=== PATIENT | female | born 1955 | race Caucasian/White ===

== ENCOUNTER 2017-01-19 10:44 | Inpatient (IN) | payer OTHER, SELFPAY ==
--- NOTE | ~2017-01-19 | DS ---
Unit #: [id number] #: [id number] Patient: TAPAN DINH [id number] [address] [address] [id number] I MR#: [id number] NAME: TAPAN DINH ROOM: 559 Age: 61 Sex: F Admission Date: 01/19/2017 : 1955 Discharge Date: 01/23/2017 Attending Physician: Alejandro Mcfadden M.D. Referring Physician: Arlet Fabian M.D. Primary Care Physician: Arlet Fabian M.D. DISCHARGE SUMMARY DISCHARGE DIAGNOSES 1. Iwxvg-nw-pnmamkn systolic congestive heart failure, left ventricular ejection fraction has decreased down to 30% from 50% to 55%. 2. 2D echo on 01/20/2017 shows LVEF reduced to 30%. Mild LVH, severe hypokinesis, mild enlargement of the right atrium, mildly dilated left atrium, and moderately dilated right ventricle with elevated RVSP 50 mmHg consistent with moderate pulmonary hypertension and moderate mitral annular calcification, and moderate mitral regurgitation and moderate tricuspid regurgitation. 3. Atrial flutter, questionable onset. 4. Cardiac catheterization done by Dr. Mcfadden on 01/22/2013 showed normal coronaries. No LV-gram. 5. Jdkaz-nh-ltuoeqp kidney disease. 6. Hypertension. 7. Hyperlipidemia. 8. Anxiety. DISCHARGE MEDICATIONS 1. Acetaminophen 650 mg p.o. q.8 h. 2. Coumadin 5 mg p.o. today. 3. Coumadin 2.5 mg p.o. daily. 4. Doxepin [address]s. [address] Dr[address] Byrne. 5. Stop the trazodone. 6. Vistaril 25 mg p.o. b.i.d. per Dr. Byrne. 7. Carvedilol 25 mg p.o. b.i.d. 8. Lasix 20 mg p.o. b.i.d. 9. Pravastatin 40 mg p.o. h.s. 10. Hydralazine 50 mg p.o. b.i.d. 11. Zyloprim 100 mg p.o. daily. 12. Aspirin 81 mg p.o. daily. 13. Tramadol 50 mg p.o. q.6 h. p.r.n. as needed. 14. Potassium chloride 20 mEq p.o. b.i.d. 15. Flexeril 10 mg p.o. t.i.d. as needed for muscle spasms. 16. Levothyroxine 100 mcg p.o. daily. 17. Vitamin B12 1000 mcg p.o. daily. 18. Vitamin D3 one tablet p.o. daily. 19. Losartan 50 mg p.o. daily. HOSPITAL COURSE This is a 61-year-old white female with history of having atrial fibrillation and atrial flutter and underwent DC cardioversion in 2014 to get in sinus rhythm. She remains on chronic anticoagulation with Coumadin. The patient has had a cath back in 2011 which showed 90% stenosis in a septal is architect, mid LAD was 50% and left circumflex had a Unit #: [id number] #: [id number] Patient: TAPAN DINH 30% stenosis. Ejection fraction at that time was 20% to 25% with mxvz-dy-npbmjtxv mitral regurgitation. Patient had an echo later about a year later and her LVEF increased to 50% to 55%. The patient has not been following up regularly with Dr. Mcfadden. She does see Dr. Fabian. The patient presented to the emergency room because she was feeling a lot of heart racing and palpitations. She says it has been happening over the past couple of days. The patient did complain of some pain in the left anterior chest wall. She said it was like a dull pushing ache. There is no radiation to the neck or jaws. She had some diaphoresis but no nausea or vomiting. She has been slightly short of breath since the heart racing and fluttering but denies paroxysmal nocturnal dyspnea or orthopnea. She also says that she has been having a lot of issues with her anxiety and states that she has frequent anxiety attacks. She has been compliant with her CPAP at night, she has obstructive sleep apnea. In the emergency room, patient's blood pressure was found to be elevated at 191/106 and her heart rate was in the 80s. BUN 17, creatinine 1.5. Her BNP was mildly elevated at 476. D-dimer was normal at 347. INR was subtherapeutic at 1.3. Chest x-ray showed some vascular congestion. Her EKG revealed atrial flutter with a controlled ventricular rate in the 70s. She was started on some IV Lasix. She was on Lovenox until her INR became therapeutic. The patient was having renal insufficiency and needed to diuresis and possibly do a heart catheterization. Nephrology was consulted. Dr. Salas assisted with management. Patient did have a stress test and it was abnormal and showed anterior wall ischemia with LVEF of 30%. With patient's multiple risk factors and having a cath in 2011 with some blockages, it was felt she needed a repeat heart catheterization. Dr. Salas did premedicate the patient with Mucomyst and she was started on IV fluids half normal saline. Her Lasix was stopped after diuresing and she was started on IV dobutamine. She responded well to the therapy. She remains in atrial flutter with controlled ventricular rate. Dr. Mcfadden performed a cardiac catheterization on 01/22/2017 which revealed nonobstructive CAD but she still continued to have the 90% stenosis in the septal is architect. The patient's losartan had to be stopped initially because of her renal insufficiency but at discharge she is going to return home on losartan 50 mg p.o. daily but increase the dose of hydralazine for better blood pressure management. Dr. Salas is resuming her Lasix b.i.d. The patient will have a BMP and those results will be called to Dr. Salas's office and our office. On , also patient was started back on her Coumadin. Patient received a 5 mg dose today and was started on 2.5 mg and have a pro time and INR in our office next week. The patient will be discharged home in stable condition. No complaints of chest pain, palpitations or dizziness. Her ventricular rate is better controlled and she says she is overall feeling better. The patient's vital signs are stable. Most recent laboratory diagnostic data includes glucose 92, BUN 19, creatinine 1.7, EGFR is 31.6, sodium 133, potassium 3.8, chloride 104, CO2 is 23, calcium 10.2, magnesium 2.2, total protein 7.2, albumin 4.0, AST 21, ALT 18, alkaline phosphatase 80. BNP 109. Fasting lipid profile cholesterol 139, triglycerides 101, LDL 78, HDL 41. TSH 3.68. WBC 8.0, hemoglobin 13.6, hematocrit 42.9, platelets 186. EKG today shows atrial flutter with controlled ventricular rate of 76 beats per minute. PHYSICAL EXAMINATION AT DISCHARGE Unit #: [id number] #: [id number] Patient: TAPAN DINH VITAL SIGNS: Blood pressure 146/65, heart rate 84, respirations 18, temperature afebrile. HEART: S1, S2. Irregular rate and rhythm. LUNGS: Diminished, otherwise, clear. ABDOMEN: Soft, nontender. EXTREMITIES: Pedal pulses are palpable, no pedal edema. PLAN/INSTRUCTIONS The patient will be discharged home today, instructed to follow up with Dr. Mcfadden in 4 weeks. Appointment is for 02/20/2017 at 3 p.m. At that time, if the patient is still in atrial flutter/atrial fibrillation will arrange for DC cardioversion. The patient has been started back on her ARB for cardiomyopathy. The patient is on anticoagulation, given an extra dose of Coumadin today, then resume her previous home dose starting tomorrow and have a pro time INR in our office next Thursday. The patient will follow with Dr. Salas in his office on 03/17/2017 at 4:30 p.m. The patient will follow up with her primary care doctor on her anti-anxiety medications that Dr. Byrne prescribed. Provided reinforcement education for CHF. Patient will follow up with her PCP in 1 to 2 weeks. Patient will have a BMP on 02/05/2017 and those results will be sent to Dr. Mcfadden's office. The patient is to stop her hydrochlorothiazide but continue on her Lasix and her hydralazine has been increased. As mentioned, the patient is on an ARB, losartan 50 mg one tablet daily for cardiomyopathy. Dictated by... Dona Solis A.P.R.NAntony for Alejandro Mcfadden M.D. JAVIER/jt TD: 01/23/2017 21:23 JOB #: [id number] Unit #: [id number] #: [id number] Patient: TAPAN DINH DISCHARGE SUMMARY Page 1 of 1 X Dona Solis APRN X DISCHARGE SUMMARY
--- NOTE | ~2017-01-19 | CO ---
Unit #: [id number] #: [id number] Patient: TAPAN DINH [id number] [id number] [facility]. [place], [place] [address] [id number] I MR#: [id number] NAME: TAPAN DINH ROOM: 559 Age: 61 Sex: F Admission Date: 01/19/2017 : 1955 Attending Physician: Alejandro Mcfadden M.D. Primary Care Physician: Arlet Fabian M.D. Consultation Date: 01/19/2017 CONSULTATION REPORT REASON FOR CONSULTATION Depression and anxiety. HISTORY OF PRESENT ILLNESS Ms. Hunter is a 61-year-old white female, seen on 01/19/2017 in room 559 at [facility]. The patient was admitted on 01/19/2017 with chest pain. The patient reported that she has anxiety and discomfort. The patient was pleasant and cooperative during interview, moderately obese, dressed in hospital attire. The patient reported that she has been having anxiety attack and panic attack, mostly in the last 2 weeks. The patient reported taking medication for sleep and anxiety from the last year from primary care physician, currently on trazodone 100 mg at bedtime. The patient reported that recently they started Xanax 0.25 mg q.8 hours which helped. The patient currently denied any suicidal or homicidal ideation. Denied any psychotic symptom. The patient reported feeling tired in the morning, reports takes trazodone and at times Ambien. The patient denied any use of drugs or alcohol or any marijuana. PAST PSYCHIATRIC HISTORY Remarkable for history of depression and anxiety, received treatment from her primary care physician. MEDICAL HISTORY Remarkable for history of hypertension, history of angina, nonischemic cardiomyopathy, chronic kidney disease, history of rheumatic fever, hypertension, and hyperlipidemia. MEDICATIONS The patient is on Desyrel 100 mg at bedtime, Lipitor 10 mg daily, hydralazine 50 mg b.i.d., Coreg 25 mg b.i.d., Klor-Con, Xanax, furosemide, Flexeril, Ultram, and aspirin. Please refer to MAR for detail. FAMILY HISTORY AND SOCIAL HISTORY The patient lives by herself, has a good support system from her children. The patient denied any use of drugs or alcohol. No history of any abuse. REVIEW OF SYSTEMS Complete review of systems is unremarkable except as mentioned above. MENTAL STATUS EXAMINATION General appearance; the patient moderately obese, dressed casually. Attention span and concentration, fair. Speech, regular rate and coherent. Oriented in time, place, and person. Mood and affect were sad, dysphoric, anxious. Thought process, coherent and goal directed. Thought Unit #: [id number] #: [id number] Patient: TAPAN DINH content, the patient denied any thoughts of harming self or others or any psychotic symptom. Recent and remote memory, fair. Language, able to name object, repeat phrases. Fund of knowledge, fair. Insight and judgment, fair to slightly impaired. DIAGNOSES Psychiatric: 1. Mood disorder, not otherwise specified, F32.9. 2. Anxiety disorder, not otherwise specified, F40.01. Secondary diagnosis: Deferred. Medical diagnosis: Please refer to H and P. Stressors: Psychosocial stressor. ASSESSMENT/PLAN 1. Supportive psychotherapy and psychoeducation provided to the patient. 2. Educated about benefits and side effects of medication and course and prognosis of illness. 3. Advised to start the patient on doxepin 50 mg at bedtime. Discontinue trazodone as the medication is not helping, and advised Vistaril 25 mg b.i.d. for anxiety and continue with p.r.n. Xanax. We will continue to follow. Please feel free to call if any questions, telephone #[phone]. Dictated by... Sarina Casarez/spring TD: 01/21/2017 03:35 JOB #: [id number] CONSULTATION REPORT Page 1 of 1 X Glenn Byrne MD X CONSULTATION REPORT
--- NOTE | ~2017-01-19 | EKG ---
PATIENT: TAPAN DINH UNIT #: [id number] Ventricular Rate: 79 BPM Atrial Rate: 79 BPM P-R Interval: 250 ms QRS Duration: 170 ms Q-T Interval: 480 ms QTC Calculation(Bezet): 550 ms P [place]: 89 degrees Calculated R [place]: 180 degrees Calculated T [place]: 43 degrees Diagnosis Line: Atrial flutter Diagnosis Line: Indeterminate axis Diagnosis Line: Non-specific intra-ventricular conduction block Diagnosis Line: Abnormal ECG Diagnosis Line: When compared with ECG of 20-JAN-2017 07:38, Diagnosis Line: No significant change was found Diagnosis Line: Confirmed by BLAS LINARES MD ([id number]) on 01/27/2017 Diagnosis Line: 10:21:16 PM INTERPRETING MD: MILAGROS CLEMONS
--- NOTE | ~2017-01-19 | CO ---
Unit #: [id number] #: [id number] Patient: TAPAN DINH [id number] [facility] [address] [facility]. [place], [place] [address] [id number] I MR#: [id number] NAME: TAPAN DINH ROOM: 559 Age: 61 Sex: F Admission Date: 01/19/2017 : 1955 Attending Physician: Alejandro Mcfadden M.D. Primary Care Physician: Arlet Fabian M.D. Consultation Date: 01/22/2017 CONSULTATION REPORT REASON FOR CONSULTATION Followup. DISCUSSION Miss Hunter is a 61-year-old female seen in room 559, bed 1, on January 22, 2017, at [facility]. Patient reported that she had a cardiac cath yesterday and everything was fine. Patient reported that she is feeling happy that there was no blockage. Patient reports that she is still having trouble sleeping and anxiety, but the medication is helping her. Patient is currently on Vistaril and doxepin. Denied any thoughts of harming self or others or any psychotic symptoms. REVIEW OF SYSTEMS Complete review of systems is unremarkable. MENTAL STATUS EXAMINATION General appearance: Patient is dressed casually, moderately obese. Attention span and concentration are fair. Speech is regular rate and coherent. Oriented in time, place, and person. Mood and affect are labile. Thought process coherent. Thought content: Patient denied any thoughts of harming self or others. Recent and remote memory fair. Language: Able to name object and repeat phrases. Fund of knowledge fair. Insight and judgment fair to slightly impaired. DIAGNOSES PSYCHIATRIC: Mood disorder not otherwise specified F32.9; anxiety disorder not otherwise specified F40.01. ASSESSMENT AND PLAN 1. Supportive psychotherapy and psychoeducation provided to patient. 2. Educated about benefits and side effects of medication and course and prognosis of illness. 3. Continue with current medication. If needed, consider further adjustment of medication. 4. Please feel free to call with any questions at [phone]. Dictated by... Sarina Casarez/miguelina TD: 01/25/2017 16:15 JOB #: [id number] Unit #: [id number] #: [id number] Patient: TAPAN DINH CONSULTATION REPORT Page 1 of 1 X Glenn Byrne MD CONSULTATION REPORT
--- NOTE | ~2017-01-19 | EKG ---
PATIENT: TAPAN DINH UNIT #: [id number] Ventricular Rate: 79 BPM Atrial Rate: 79 BPM P-R Interval: 260 ms QRS Duration: 176 ms Q-T Interval: 498 ms QTC Calculation(Bezet): 571 ms P [place]: 80 degrees Calculated R [place]: 128 degrees Calculated T [place]: 24 degrees Diagnosis Line: Atrial flutter Diagnosis Line: Non-specific intra-ventricular conduction block Diagnosis Line: Abnormal ECG Diagnosis Line: Diagnosis Line: Confirmed by BLAS LINARES MD ([id number]) on 01/20/2017 Diagnosis Line: 10:27:07 PM INTERPRETING MD: MILAGROS CLEMONS
--- NOTE | ~2017-01-19 | TH ---
Unit #: [id number] #: [id number] Patient: TAPAN DINH [id number] [address] [address] [id number] I MR#: [id number] NAME: TAPAN DINH : 1955 SEX: F STUDY DATE/TIME: 01/20/2017 UNIT: C5B ROOM: 559 STUDY DESCRIPTION: Attending Physician: Alejandro Mcfadden M.D. Referring Physician: Arelt Fabian M.D. Primary Care Physician: Arlet Fabian M.D. CARDIOLOGY REPORT EXAM Lexiscan Cardiolite stress test, nuclear portion. PROCEDURE Using technetium 99m labeled Cardiolite, rest and stress SPECT images were obtained. Multiple SPECT images were obtained in various views including horizontal and vertical long axis and short axis views of the left ventricle. Images were obtained by gated SPECT method. Patient was administered 11.77 mCi of Cardiolite at rest. Patient was administered 34.7 mCi of Cardiolite after Lexiscan infusion was completed. On the stress images, there is a medium-sized area of severe decreased isotope activity involving the anterior wall. The rest images show a smaller area of mild decreased isotope activity anteriorly. Comparing rest and stress images, there is a medium-sized area of stress-induced ischemia involving the anterior wall of the left ventricle. The left ventricular ejection fraction is calculated to be 60%. There is global hypokinesis seen. The left ventricular cavity is moderately dilated post stress. CONCLUSION 1. Suspicion for medium-sized area of stress-induced ischemia involving the anterior wall of the left ventricle. 2. The left ventricular ejection fraction is calculated to be 30%. 3. There is moderate left ventricular cavity dilatation post stress. 4. There is moderate global hypokinesis seen. 5. Suspicion for severe ischemic dilated cardiomyopathy. 6. Technically limited study due to patient's body habitus. Clinical correlation is requested. 1. Dictated bySarina Roblero TD: 01/20/2017 14:45 JOB #: [id number] Unit #: [id number] #: [id number] Patient: TAPAN DINH S CARDIOLOGY REPORT Page 1 of 1 X Juliet Darden MD <ELECTRONICALLY SIGNED> 05/16/17 1429 CARDIOLOGY REPORT
--- NOTE | ~2017-01-19 | CR72 ---
[facility] A Service of [facility] RADIOLOGY TEXT RESULTS PATIENT: TAPAN DINH LOCATION: [place] [address] : [birth year] UNIT #: [id number] AGE: [address]: Alejandro Mcfadden MD SEX: F ORDER DR: [id number] [facility] [address] [place], [place] [address] [id number] I MR#: [id number] Acc #: [id number] NAME: TAPAN DINH : 1955 SEX: F STUDY DATE/TIME: 01/19/2017 9:39 UNIT: CEDOF ROOM: 10634 STUDY DESCRIPTION: CR Chest Single View Portable Attending Physician: Alejandro Mcfadden M.D. Referring Physician: Arlet Fabian M.D. Ordering Physician: Khoa Ariza M.D. Primary Care Physician: Arlet Fabian M.D. MEDICAL IMAGING REPORT This report is preliminary unless electronic signature is present EXAM Portable chest 01/19/2017 INDICATION Left side chest pain, abdominal pain for 1 day. FINDINGS AP portable chest is compared with 10/05/2015. The heart is enlarged. There is some central vascular congestion. The lungs are clear allowing for body habitus and portable technique. No pneumothorax. IMPRESSION Cardiomegaly with some mild vascular congestion. Dictated by... Dylan Hammond Jr., M.D. THIS IS AN ELECTRONICALLY VERIFIED REPORT Dylan Hammond Jr., M.D. at 01/19/2017 4:48 PM JAXON/yo TD: 01/19/2017 12:41 JOB #: [id number] MEDICAL IMAGING REPORT Page 1 of 1 COPY
--- NOTE | ~2017-01-19 | ST ---
Unit #: [id number] #: [id number] Patient: TAPAN DINH [id number] [address] [place], [place] [address] [id number] I MR#: [id number] NAME: TAPAN DINH. : 1955 SEX: F STUDY DATE/TIME: 01/20/2017 UNIT: C5B ROOM: 559 STUDY DESCRIPTION: Attending Physician: Alejandro Mcfadden M.D. Referring Physician: Arlet Fabian M.D. Primary Care Physician: Arlet Fabian M.D. CARDIOLOGY REPORT EXAM Lexiscan Cardiolite stress test. FINDINGS Baseline EKG: Atrial flutter with variable degrees of conduction with ventricular rate 81 beats per minute, left bundle branch block, poor R-wave progression. PROCEDURE Lexiscan is a 4-minute test with Lexiscan being injected within the first minute followed by Cardiolite. EKG during the test was equivocal to baseline. No acute ischemic changes. The patient had no complaints of chest pain, palpitations, or dizziness. Had increased shortness of breath and weakness which resolved in recovery phase. Maximum heart rate response was 83 beats per minute with a maximum blood pressure response of 162/80 mmHg. Cardiolite was injected after Lexiscan within the first minute of the test. Radionuclide tests pending. Please correlate with nuclear images. Dictated by... Dona Solis A.P.R.N. for Sarina Yeboah TD: 01/20/2017 10:57 JOB #: [id number] CARDIOLOGY REPORT Page 1 of 1 X Dona Solis APRN CARDIOLOGY REPORT
--- NOTE | ~2017-01-19 | CO ---
Unit #: [id number] #: [id number] Patient: TAPAN DINH [id number] [facility] [address] [facility]. [place], [place] [address] [id number] I MR#: [id number] NAME: TAPAN DINH ROOM: 559 Age: 61 Sex: F Admission Date: 01/19/2017 : 1955 Attending Physician: Alejandro Mcfadden M.D. Primary Care Physician: Arlet Fabian M.D. Consultation Date: 01/23/2017 CONSULTATION REPORT DISCUSSION Miss Hunter is a 61-year-old female seen on 01/23/2017. Patient interviewed, chart reviewed (1) . Patient was seen in room [address] [facility]. Patient reported that she is feeling better, still having problems with sleep but anxiety is doing better. Denied any thoughts of harming self or others. Denied any psychotic symptoms. Patient is somewhat anxious about her outpatient followup but happy that her heart is okay. REVIEW OF SYSTEMS Complete review of systems is unremarkable. MENTAL STATUS EXAMINATION General appearance: Patient is moderately obese, dressed in hospital attire, sitting up in chair. Made good eye contact. Compliant and cooperative. Attention span and concentration were fair. Speech is regular rate and coherent. Oriented in time, place, and person. Mood and affect was brighter but somewhat anxious. Thought process was coherent. Thought content: Patient denied any thoughts of harming self or others or any psychotic symptoms. Recent and remote memory: Fair. Language: Able to name object and repeat phrases. Fund of knowledge fair. Insight and judgment fair to slightly impaired. DIAGNOSES PSYCHIATRIC: Mood disorder, NOS and anxiety disorder, NOS. ASSESSMENT/PLAN Advised to continue with current medication and therapeutic protocol. Supportive psychotherapy and psychoeducation provided to patient. Advised to continue with the Vistaril 25 mg twice daily and doxepin 50 mg at bedtime. Please feel free to call if any questions, telephone number [phone]. Patient to follow on an outpatient basis with the outpatient psychiatrist or primary care physician. Dictated by... Glenn Byrne M.D. TRUDY/aracely TD: 01/25/2017 18:19 JOB #: [id number] Unit #: [id number] #: [id number] Patient: TAPAN DINH CONSULTATION REPORT Page 1 of 1 X Glenn Byrne MD CONSULTATION REPORT
--- NOTE | ~2017-01-19 | CO ---
Unit #: [id number] #: [id number] Patient: TAPAN DINH [id number] [address] [address] [id number] I MR#: [id number] NAME: TAPAN DINH. ROOM: 55 Age: 61 Sex: F Admission Date: 01/19/2017 : 1955 Attending Physician: Alejandro Mcfadden M.D. Primary Care Physician: Arlet Fabian M.D. Consultation Date: 01/20/2017 CONSULTATION REPORT REASON FOR CONSULT Known chronic kidney disease. HISTORY OF PRESENT ILLNESS Miss Dinh is a very pleasant 61-year-old white female with a history of heart disease, who presented to the emergency room with some chest discomfort and palpitations, as well as shortness of breath. Patient was found to be in atrial fibrillation/atrial flutter and congestive heart failure and has been treated by Cardiology for this issue. She has known coronary artery disease. We were asked to see for an abnormal kidney function test. Review of old labs demonstrates stability in her kidney function. Her blood pressure was noted to be quite high when she came in and has improved with medical therapy here. She believes her blood pressure elevations are due to anxiety issues. Patient is feeling much better this evening. She is without chest discomfort or shortness of breath. She is not wearing any oxygen. She denies any swelling or urinary complaints. She does not use any NSAIDS at home. PAST MEDICAL HISTORY 1. Known coronary artery disease. 2. Congestive heart failure with an EF of 30%. 3. Moderate pulmonary hypertension. 4. Moderate tricuspid and mitral regurgitation. 5. Atrial fibrillation/atrial flutter. 6. Hypertension. 7. Hyperlipidemia. 8. Chronic kidney disease. 9. Obesity. 10. Obstructive sleep apnea. 11. Anxiety with panic attacks. 12. Depression. 13. Obesity. 14. Hypothyroidism. 15. Osteoarthritis. 16. Gout. 17. Rheumatic fever. PAST SURGICAL HISTORY 1. Parathyroidectomy. 2. Tubal ligation. 3. Hysterectomy. 4. Lap-Band. Unit #: [id number] #: [id number] Patient: TAPAN DINH 5. Deviated septum. 6. Cardiac catheterizations. HOME MEDICATIONS 1. B12 daily. 2. Potassium chloride 20 mEq twice daily. 3. Losartan and hydrochlorothiazide 100/12.5 mg daily. 4. Levothyroxine 100 mcg daily. 5. Flexeril 10 mg t.i.d. 6. Tramadol 50 mg every 6 hours. 7. Pacerone 200 mg daily. 8. Allopurinol 100 mg daily. 9. Baby aspirin daily. 10. Tylenol p.r.n. 11. Pravastatin 40 mg at bedtime. 12. Coreg 25 mg twice daily. 13. Lasix 20 mg twice daily. 14. Hydralazine 37.5 mg twice daily. 15. Trazodone 100 mg at bedtime. 16. Coumadin as directed. 17. Vitamin D daily. ALLERGIES SULFA AND CODEINE. FAMILY HISTORY Heart disease and congestive heart failure. No family history of kidney disease or dialysis. SOCIAL HISTORY She has never smoked and no alcohol or drug abuse. She has a supportive daughter with her here today. REVIEW OF SYSTEMS A complete 12-point review of systems was completed with the above findings. In addition, she denies any headaches or dizziness at this time, no nosebleed, sore throat, or earache, no cough or hemoptysis, no nausea, vomiting, or diarrhea, no bright red blood per rectum or melena, no dysuria, no hematuria, no rashes, no itching, no flank pain, no fevers, no chills, no night sweats, no hot flashes, no intolerance to heat or cold, no bleeding issues, no recent weight changes, and no vision changes. Unless otherwise indicated, the review of systems was negative. PHYSICAL EXAMINATION VITAL SIGNS: Patient is afebrile, pulse 80, respiratory rate 24, and blood pressure 144/61, down from 191/106 on admission. GENERAL: This is a 61-year-old female sitting up in bed, calm, not wearing any oxygen, and in no acute distress. HEENT: Head is atraumatic and normocephalic. Eyes show pink conjunctivae with no scleral icterus. No nasal drainage or nosebleed. Oropharynx is moist. No thrush. NECK: Thick with no rigidity. HEART: Regular rate at this time with murmur present. No gallop or rub appreciated. LUNGS: Clear with no rales or wheezing. Breathing is nonlabored. ABDOMEN: Protuberant, soft, and nontender. Bowel sounds are present. EXTREMITIES: No lower extremity clubbing, cyanosis, or edema. SKIN: Dry with no rashes. Unit #: [id number] #: [id number] Patient: TAPAN DINH MUSCULOSKELETAL: No CVA tenderness to palpation. NEUROLOGICAL: Cranial nerves are grossly intact with no gross motor deficits. LYMPHATICS: No neck cervical lymphadenopathy. PSYCHIATRIC: Mood and affect appear normal at this time. DIAGNOSTIC STUDIES LABORATORY: Chemistry today noteworthy for a potassium of 3.5, bicarb 26, glucose 87, BUN and creatinine 19 and 1.8, respectively, with an elevated calcium of 10.3. Magnesium was 2.2. TSH normal. Troponin negative. CBC was unremarkable. BNP was 476. Creatinine on admission was 1.5 with a normal albumin, normal total protein, and again, an elevated calcium of 10.6. Review of old labs shows a creatinine of 2 back in September 2015 which is likely near her baseline. I do see a uric acid level in here of 7.8 at that time. PTH then was 160. Urinalysis did show 2+ protein at that time with no significant blood. IMAGING: Chest x-ray on admission showed some mild vascular congestion. There was a kidney ultrasound done in September 2015 that showed a small cyst in each kidney. No masses. Otherwise unremarkable. ASSESSMENT AND PLAN 1. Chronic kidney disease stage 3. This is likely related to hypertensive nephrosclerosis. Overall, it looks stable compared to previous and is slightly elevated in relation to the admission creatinine likely due to poorly-controlled blood pressure and IV Lasix. Dr. Darden has stopped her Lasix and has relaxed her blood pressure medication. I will be rechecking a urinalysis, as well as protein and creatinine ratio. I do feel while holding the Lasix that she is a candidate to go ahead and have a heart catheterization if Cardiology deems it necessary. She would of course need preparation with fluids and Mucomyst, and I will go ahead and start the Mucomyst tonight. 2. Hypertension. Patient's blood pressure is doing better. Patient is noted to be on losartan with her history of proteinuria. She wonders if her anxiety is not causing part of her blood pressure problems. 3. Proteinuria. We will continue losartan. 4. Congestive heart failure with an ejection fraction of 30%. Patient has been diuresing with IV Lasix but now held by Cardiology. 5. Mitral regurgitation. 6. Pulmonary hypertension. 7. Obstructive sleep apnea. 8. Atrial fibrillation with flutter. 9. History of gout, on allopurinol. I will be rechecking a uric acid level. 10. Hypercalcemia. I will be rechecking an intact PTH level and possibly treating with Sensipar if needed. I would like to thank Dr. Mcfadden for this consultation and the opportunity to participate in the evaluation and care of Miss Dinh. Dictated by... Cj Salas Jr., MSilvana. DAVON/miguelina TD: 01/20/2017 22:09 JOB #: [id number] Unit #: [id number] #: [id number] Patient: TAPAN DINH CONSULTATION REPORT Page 1 of 1 X Cj Salas MD X CONSULTATION REPORT
--- NOTE | ~2017-01-19 | EKG ---
PATIENT: TAPAN DINH UNIT #: [id number] Ventricular Rate: 66 BPM Atrial Rate: 66 BPM P-R Interval: 226 ms QRS Duration: 176 ms Q-T Interval: 514 ms QTC Calculation(Bezet): 538 ms P [place]: 57 degrees Calculated R [place]: -136 degrees Calculated T [place]: 82 degrees Diagnosis Line: Atrial fibrillation Diagnosis Line: Right superior axis deviation Diagnosis Line: Non-specific intra-ventricular conduction block Diagnosis Line: Abnormal ECG Diagnosis Line: When compared with ECG of 19-JAN-2017 09:05, Diagnosis Line: (unconfirmed) Diagnosis Line: Questionable change in QRS axis Diagnosis Line: Nonspecific T wave abnormality now evident in Diagnosis Line: Lateral leads Diagnosis Line: Confirmed by BLAS LINARES MD ([id number]) on 01/20/2017 Diagnosis Line: 10:31:31 PM INTERPRETING MD: MILAGROS CLEMONS
--- NOTE | ~2017-01-19 | BMI ---
[facility] Nutrition Therapy DATE: 01/20/17 Patient: TAPAN Mcclelland BLANEMERI Physician: MICHAELLE Address: [address] Room/Bed: [address] [place] [address], Zip: [place] [address] Admit Date: 01/19/17 Date of : [birth year] Height: 4 11 Weight: 217 98.8 HIGH BMI NOTE: DX: 61 y/o female admitted with chest pain ANTHROPOMETRICS: Ht: 59", Wt: 98.8 kg, BMI: 45 (Stage III obese) DIET: NPO (previously on healthy heart with fluid restriction) INTERVENTION: Resume restrictive PO diet once appropriate, meds/fluids per MD RECOMMENDATIONS: Agree with Healthy Heart diet to promote a gradual weight loss towards a healthy BMI range, fluids per MD. Respectfully, Kaylee Michelle RD, LD Food and Nutritional Services [facility] cc: client file
--- NOTE | ~2017-01-19 | CO ---
Unit #: [id number] #: [id number] Patient: TAPAN DINH [id number] [facility] [address] [facility] [place], [place] [address] [id number] I MR#: [id number] NAME: TAPAN DINH ROOM: 559 Age: 61 Sex: F Admission Date: 01/19/2017 : 1955 Attending Physician: Alejandro Mcfadden M.D. Primary Care Physician: Arlet Fabian M.D. Consultation Date: 01/21/2017 CONSULTATION REPORT REASON FOR CONSULTATION Followup. DISCUSSION Ms. Tapan Diop is a 61-year-old white female, seen on 01/21/[address] [facility] in room 559. The patient reported that she was able to sleep good, but still having problems because of the hospital bed. Reporting anxiety is better. The patient is tolerating medication fairly well. Currently, on doxepin and Vistaril. No side effects from medication. Denied any psychotic symptom. The patient was pleasant, cooperative during interview. REVIEW OF SYSTEMS Complete review of systems unremarkable. MENTAL STATUS EXAMINATION General appearance, the patient dressed in hospital attire, sitting comfortably in chair. Attention span and concentration, fair. Speech, regular rate and coherent. Oriented in time, place, and person. Mood and affect were sad and dysphoric. Thought process, coherent. Thought content, the patient denied any thoughts of harming self or others. Denied any psychotic symptom. Recent and remote memory, fair. Language, able to name object and repeat phrases. Fund of knowledge, fair. Insight and judgment, fair to slightly impaired. DIAGNOSES Psychiatric: Mood disorder, not otherwise specified, F32.9; anxiety disorder, not otherwise specified, F40.01. ASSESSMENT AND PLAN 1. Supportive psychotherapy and psychoeducation provided to the patient. 2. Educated about benefits and side effects of medication and course and prognosis of illness. 3. Advised to continue with current medication. If needed, consider further adjustment of medication. Dictated by... Glenn Byrne M.D. TRUDY/spring TD: 01/22/2017 23:42 JOB #: [id number] Unit #: [id number] #: [id number] Patient: TAPAN DINH CONSULTATION REPORT Page 1 of 1 X Glenn Byrne MD CONSULTATION REPORT
--- NOTE | ~2017-01-19 | HP ---
Unit #: [id number] #: [id number] Patient: TAPAN DINH [id number] [address] [place], [place] [address] [id number] MR#: [id number] NAME: TAPAN DINH ROOM: 559 Age: 61 Sex: F Admission Date: 01/19/2017 : 1955 Attending Physician: Alejandro Mcfadden M.D. Referring Physician: Arlet Fabian M.D. Primary Care Physician: Arlet Fabian M.D. HISTORY AND PHYSICAL HISTORY OF PRESENT ILLNESS This is a 61-year-old white female known to our group with a past medical history of coronary artery disease, status post cardiac catheterization in 12/2011, which revealed a 90% stenosis in the septal director. Mid LAD was 50%. The left circumflex was 30%. There was some mild calcification of the right coronary artery. Ejection fraction was low at 20%-25% and there was mild to moderate mitral regurgitation. PA pressure was 54/33 with a mean of 42. The patient was continued on medical management. A two-dimensional echocardiogram was repeated later in the year in 04/2012, which revealed an ejection fraction of 50%-55%. The patient has a history of atrial fibrillation/atrial flutter and underwent direct current cardioversion 10/08/2015 and was converted successfully to sinus rhythm. She is known to have hypertension, hyperlipidemia, anxiety, depression, obstructive sleep apnea, obesity, hypothyroidism and chronic kidney disease. She is on chronic anticoagulation with Coumadin, but does not follow regularly in the office to get pro times checked. She presented to the emergency department with complaints of palpitations described as fluttering. The sensation has been present for the last couple of days and has been intermittent. She has also had some pain in her left anterior chest that is described as an aching and pulling pain. There is no radiation to the neck, jaw, shoulders or arms. Associated symptoms including some diaphoresis, but no nausea or vomiting. She has been slightly short of breath, but denies PND or orthopnea. The pain in her chest lasts for approximately a minute and resolves spontaneously. She denies fever or chills, but does admit to nonproductive cough. She had a recent headache last week that resolved. She has been having issues with her anxiety and states that she has frequent anxiety attacks. She is compliant with her CPAP at night. In the emergency department her temperature was 98.4, pulse 80, respiratory rate 10 and blood pressure 191/106 with an O2 saturation of 94%. Initial labs revealed a creatinine of 1.5 with a BUN of 17. Previous creatinine was 1.6 to 2.3 on previous hospitalizations. Potassium was 3.7. BNP was mildly elevated at 476. D-dimer was normal at 347. INR was subtherapeutic at 1.3. Cardiac enzymes were negative. Chest x-ray revealed cardiomegaly with some vascular congestion. Initial EKG was thought to read sinus rhythm. However, upon further review the patient has atrial flutter with a controlled ventricular rate in the 70s. She was given a dose of IV Lasix. She was admitted for congestive heart failure, chest pain and atrial flutter. PAST MEDICAL HISTORY 1. Coronary artery disease, status post cardiac catheterization 12/2011, Unit #: [id number] #: [id number] Patient: TAPAN DINH which revealed mid LAD 50%. Septal director 90%. Left circumflex 30%. Right coronary artery mild calcification. Ejection fraction 20%-25%. Mild to moderate mitral regurgitation. PA 54/33 with a mean of 42. Medical management. 2. Two-dimensional echocardiogram 05/14/2012 revealed a left ventricular ejection fraction of 50%-55%. Mild mitral and tricuspid regurgitation. 3. Atrial fibrillation/atrial flutter, status post direct current cardioversion 09/28/2015, converted to sinus rhythm. On chronic anticoagulation with Coumadin. 4. Hypertension. 5. Hyperlipidemia. 6. Obesity. 7. Obstructive sleep apnea. 8. Anxiety. 9. Panic attacks. 10. Depression. 11. Obesity with a history of lap band. 12. Hypothyroidism. 13. Chronic kidney disease stage 3. 14. Osteoarthritis. 15. Nonsmoker. PAST SURGICAL HISTORY 1. Parathyroidectomy. 2. Tubal ligation. 3. Hysterectomy. 4. Repair of deviated septum. 5. Colonoscopy. 6. Lap band 01/12/2014. 7. Cardiac catheterization. SOCIAL HISTORY The patient lives in a private residence. She is a nonsmoker. There are no reports of alcohol or illicit drug use. FAMILY HISTORY Her mother of congestive heart failure in her 70s. She also had history of coronary artery disease and underwent angioplasty and stent placement. Her brother of myocardial infarction. ALLERGIES Sulfa, codeine and naproxen. HOME MEDICATIONS 1. Vitamin B12 1000 mcg p.o. daily. 2. Potassium chloride 20 mEq p.o. b.i.d. 3. Losartan/hydrochlorothiazide 100/12.5 mg 1 tablet p.o. daily. 4. Levothyroxine 100 mcg p.o. daily. 5. Flexeril 10 mg p.o. t.i.d. p.r.n. 6. Tramadol 50 mg p.o. q.6 h. p.r.n. 7. Amiodarone 200 mg p.o. daily. 8. Allopurinol 100 mg p.o. daily. 9. Aspirin 81 mg p.o. daily. 10. Tylenol 650 mg p.o. q.8 h. 11. Pravastatin 40 mg p.o. at bedtime. 12. Coreg 25 mg p.o. b.i.d. 13. Lasix 20 mg p.o. b.i.d. Unit #: [id number] #: [id number] Patient: TAPAN DINH 14. Hydralazine 37.5 mg p.o. b.i.d. 15. Trazodone 100 mg p.o. at nighttime. 16. Coumadin 5 mg p.o. daily. 17. Vitamin D 1 tablet p.o. daily. REVIEW OF SYSTEMS Ten point review of systems is negative except for details as noted above in history of present illness. PHYSICAL EXAMINATION GENERAL: This is a 61-year-old white female in no acute distress. VITALS: Temperature 98.4, pulse 80, blood pressure 191/106. HEENT: Mucous membranes dry. NECK: Supple. No jugular venous distension. No hepatojugular reflux. Normal carotid upstrokes. No carotid bruits. LUNGS: Bilateral breath sounds are diminished in the bases. Respirations even and unlabored. No rales, rhonchi or wheezes. HEART: S1 and S2. Regular rate. No rubs or gallops. ABDOMEN: Soft, nontender and nondistended. Positive bowel sounds auscultated in all four quadrants. No ascites. EXTREMITIES: Bilateral lower extremities have trace pretibial pitting edema. Dorsalis pedis and dorsalis pedis 2+. Capillary refill less than 3 seconds. DIAGNOSTIC STUDIES IMAGING: Chest x-ray reveals cardiomegaly with vascular congestion. LABORATORY: White blood cell count 7.5, hemoglobin 13.7, hematocrit 42.4, platelets 238, sodium 141, potassium 3.7, chloride 104, CO2 26, BUN 17, creatinine 1.5, glucose 118, SAT 21, ALT 18, alkaline phosphatase 80, BNP 476, INR 1.3, D-dimer 347, troponin 0.05 and 0.05. CARDIOVASCULAR: Initial EKG was read as sinus rhythm with a first degree AV block. Upon further review, the patient appears to have atrial flutter with a controlled ventricular rate. Intraventricular conduction delay. Poor R wave progression. Right axis deviation. ASSESSMENT 1. Acute on chronic congestive heart failure. Two-dimensional echocardiogram pending. 2. Chest pain. Rule out ischemic heart disease. 3. Palpitations with evidence of atrial flutter. 4. Coronary artery disease, status post catheterization in 12/2011. 5. Moderate severe pulmonary hypertension. 6. Obstructive sleep apnea on CPAP. 7. Obesity. 8. History of atrial fibrillation/atrial flutter. Status post direct current cardioversion in 09/2015. Chronic anticoagulation with Coumadin, subtherapeutic INR. 9. Hypertension. 10. Hyperlipidemia. 11. Chronic kidney disease stage 3. PLAN 1. The patient presented to the hospital with complaints of chest pain and palpitations. 2. She will be admitted for further observation. 3. Will trend cardiac enzymes and EKG. If cardiac enzymes are negative, Unit #: [id number] #: [id number] Patient: TAPAN DINH blood pressure will undergo Lexiscan Cardiolite stress test tomorrow. 4. Repeat two-dimensional echocardiogram with Doppler will be ordered to assess left ventricular function and valves. 5. Fasting lipid profile and TSH will be obtained. 6. The patient will be continued on a beta milagros, ARB, potassium supplement, aspirin and statin. 7. She will be started on topical nitrates and therapeutic Lovenox for chest pain. 8. If no cardiac catheterization is needed, her Coumadin will be restarted. Dictated by Juliet Parr APRN for Alejandro Mcfadden M.D. TR/gz TD: 01/20/2017 13:40 JOB #: [id number] CC: Arlet aFbian M.D. [facility] HISTORY AND PHYSICAL Page 1 of 1 X X HISTORY AND PHYSICAL
[2017-01-19 09:49] LABS: BASOPHIL# 0.1 X10e3 (0-0.3); BASOPHIL% 0.7 % (0-2.5); EOSINOPHIL# 0.2 X10e3 (0-0.7); HEMATOCRIT 42.4 % (35.0-45.0); HEMOGLOBIN 13.7 gm/dL (12.0-16.0); LYMPHOCYTE# 1.1 X10e3 (1.0-3.5); LYMPHOCYTE% 14.7 % (17.0-45.0); MEAN CELL VOLUME 96.5 FL (83-96); MEAN CORPUSCULAR HEMOGLOBIN 31.2 PG (28-34); MEAN CORPUSCULAR HGB CONC 32.3 g/dL (30-36); MEAN PLATELET VOLUME 8.9 FL (6.5-11.5); MONOCYTE# 0.5 X10e3 (0-1.0); NEUTROPHIL# 5.7 X10e3 (1.5-7.1); NEUTROPHIL% 75.6 % (40-75); PLATELET COUNT 238 X10e3 (140-420); RED BLOOD COUNT 4.39 X10e (3.90-5.30); RED CELL DISTRIBUTION WIDTH 16.3 % (11.0-15.5); WHITE BLOOD COUNT 7.5 X10e3 (4.0-10.5)
[2017-01-19 09:53] LABS: POC - CKMB 1.2 ng/mL (0.0-7.9); POC - TROPONIN <0.05 ng/mL (<=0.05)
[2017-01-19 10:03] LABS: INR 1.3; PROTHROMBIN TIME (PATIENT) 13.8 SECONDS (9.6-11.5)
[2017-01-19 10:04] LABS: DIFF IND NO
[2017-01-19 10:13] LABS: BILIRUBIN, DIRECT 0.2 mg/dL (0.0-0.2); BILIRUBIN,INDIRECT 0.7 mg/dL (0.0-0.9); BILIRUBIN,TOTAL 0.9 mg/dL (0.2-2.0); BUN/CREATININE RATIO 11.33; CALCIUM SERUM 10.6 mg/dL (8.4-10.2); CREATININE SERUM 1.5 mg/dL (0.6-1.4); GLOM FILT RATE Estimated 36.7 mL/min (>60); POTASSIUM 3.7 mmol/L (3.5-5.1); PROTEIN TOTAL SERUM 7.2 g/dL (6.0-8.3)
[~2017-01-19 10:44] MED LIST: 8 HOUR650 MG PO; ACETAMINOPHEN PO; ALLEGRA ALLERG180 MG PO; ALLEGRA PO; ALLEGRA30 MG/5 ML PO; AMBIEN PO; AMBIEN10 MG PO; AMIODARONE PO; APRESOLINE PO; ASPIRIN EC81 M1 PO; ASPIRIN81 M1 PO; ASPIRIN81 M2 PO; ASPIRIN81 MG PO; B-121000 MC3 PO; CARVEDILOL25 MG PO; CORDARONE200 M1 PO; COREG PO; COUMADIN2.5 MG PO; COUMADIN5 MG PO; CRESTOR10 MG PO; CYANOCOBALAM1000 MCG PO; EPIKLOR20 MEQ PO; FLEXERIL PO; FLEXERIL10 MG PO; FLONASE 0.05% N16 GM; FLONASE16 GM; HYDRALAZINE HCL25 MG PO; HYZAAR 100-12.51 TAB PO; ISORDIL PO; K-DUR20 ME1 PO; K-DUR20 ME2 PO; K-TAB ER20 MEQ PO; LASIX20 MG PO; LEVO-T100 MCG PO; LOSARTAN-HCTZ1 EAC2 PO; METOPROLOL SUC100 MG PO; METOPROLOL SUCC50 MG PO; NEURONTIN300 MG PO; OCEAN45 ML; OXYCODONE HCL20 M1 PO; OXYCODONE HCL5 M1 PO; PACERONE100 MG PO; POTASSIUM CHLO20 ME1 PO; PRAVASTATIN SOD40 MG PO; PROBENECID500 MG PO; SYNTHROID75 MCG PO; TOPROL XL50 MG PO; TRAMADOL HCL50 M1 PO; TRAZODONE HCL100 MG PO; VITAMIN B122500 MCG PO; VITAMIN D2000 UNI1 PO; VITAMIN D3 PO; VITAMIN D35000 UNI1 PO; ZOLOFT100 MG PO; ZYLOPRIM100 MG PO
[2017-01-19 11:37] LABS: POC - CKMB <1.0 ng/mL (0.0-7.9); POC - TROPONIN <0.05 ng/mL (<=0.05)
[2017-01-20 05:17] LABS: HEMATOCRIT 40.8 % (35.0-45.0); HEMOGLOBIN 13.2 gm/dL (12.0-16.0); MEAN CELL VOLUME 96.5 FL (83-96); MEAN CORPUSCULAR HEMOGLOBIN 31.3 PG (28-34); MEAN CORPUSCULAR HGB CONC 32.5 g/dL (30-36); MEAN PLATELET VOLUME 8.3 FL (6.5-11.5); RED BLOOD COUNT 4.23 X10e (3.90-5.30); WHITE BLOOD COUNT 6.3 X10e3 (4.0-10.5)
[2017-01-20 07:15] LABS: BUN/CREATININE RATIO 10.55; CALCIUM SERUM 10.3 mg/dL (8.4-10.2); CREATININE SERUM 1.8 mg/dL (0.6-1.4); GLOM FILT RATE Estimated 29.4 mL/min (>60); MAGNESIUM 2.2 mg/dL (1.6-3.0); POTASSIUM 3.5 mmol/L (3.5-5.1)
[2017-01-20 23:22] LABS: URINE APPEARANCE CLEAR; URINE BILIRUBIN NEG (NEG); URINE BLOOD NEG (NEG); URINE COLOR YELLOW; URINE GLUCOSE NEG (NEG); URINE KETONE NEG (NEG); URINE LEUKOCYTE ESTERASE 1+ (NEG); URINE NITRATE NEG (NEG); URINE PROTEIN 2+ (NEG); URINE SPECIFIC GRAVITY 1.022 (1.003-1.035)
[2017-01-20 23:24] LABS: CULTURE INDICATED? YES; URBCS1 AUWI 0-2 /[HPF] (0-2); URINE BACTERIA AUWI NEG (NEGATIVE); URINE SQUAMOUS EPITHELIAL CELL FEW /[HPF]
[2017-01-20 23:38] LABS: CREATININE,RANDOM URINE 235 mg/dL; TOTAL PROTEIN,RANDOM URINE 111 mg/dl (<10)
[2017-01-21 06:27] LABS: HEMATOCRIT 43.9 % (35.0-45.0); HEMOGLOBIN 13.9 gm/dL (12.0-16.0); MEAN CELL VOLUME 97.7 FL (83-96); MEAN CORPUSCULAR HEMOGLOBIN 30.9 PG (28-34); MEAN CORPUSCULAR HGB CONC 31.6 g/dL (30-36); MEAN PLATELET VOLUME 8.5 FL (6.5-11.5); RED BLOOD COUNT 4.49 X10e (3.90-5.30); RED CELL DISTRIBUTION WIDTH 16.4 % (11.0-15.5); WHITE BLOOD COUNT 7.6 X10e3 (4.0-10.5)
[2017-01-21 07:14] LABS: BUN/CREATININE RATIO 11.05; CALCIUM SERUM 10.6 mg/dL (8.4-10.2); CREATININE SERUM 1.9 mg/dL (0.6-1.4); GLOM FILT RATE Estimated 27.6 mL/min (>60); PHOSPHOROUS 2.9 mg/dL (2.5-4.6); POTASSIUM 3.8 mmol/L (3.5-5.1); URIC ACID 7.8 mg/dL (2.6-7.2)
[2017-01-22 05:23] LABS: HEMATOCRIT 42.9 % (35.0-45.0); HEMOGLOBIN 13.6 gm/dL (12.0-16.0); MEAN CELL VOLUME 97.6 FL (83-96); MEAN CORPUSCULAR HEMOGLOBIN 30.9 PG (28-34); MEAN CORPUSCULAR HGB CONC 31.7 g/dL (30-36); MEAN PLATELET VOLUME 8.3 FL (6.5-11.5); RED BLOOD COUNT 4.4 X10e (3.90-5.30); RED CELL DISTRIBUTION WIDTH 16.1 % (11.0-15.5)
[2017-01-22 05:53] LABS: INR 1.1; PROTHROMBIN TIME (PATIENT) 11.6 SECONDS (9.6-11.5)
[2017-01-22 06:43] LABS: BUN/CREATININE RATIO 13.33; CALCIUM SERUM 10.7 mg/dL (8.4-10.2); CREATININE SERUM 1.8 mg/dL (0.6-1.4); GLOM FILT RATE Estimated 29.4 mL/min (>60); POTASSIUM 4.4 mmol/L (3.5-5.1)
[2017-01-22 13:50] LABS: CREATININE SERUM 1.8 mg/dL (0.6-1.4); GLOM FILT RATE Estimated 29.4 mL/min (>60)
[2017-01-23 06:39] LABS: BUN/CREATININE RATIO 11.17; CALCIUM SERUM 10.2 mg/dL (8.4-10.2); CREATININE SERUM 1.7 mg/dL (0.6-1.4); GLOM FILT RATE Estimated 31.6 mL/min (>60); POTASSIUM 3.8 mmol/L (3.5-5.1)
[2017-01-23] MEDS ORDERED: DOXEPIN HCL50 M1 PO (14:48)
[2017-01-23] MEDS ORDERED: LOSARTAN POTASS50 MG PO (14:51)
[2017-01-23] MEDS ORDERED: VISTARIL PO (14:51)
[2017-01-26 15:10] LABS: CALCIUM (PTHINTACT) 10.9 mg/dL (8.6-10.4)
[2017-04-30] MEDS ORDERED: AMIODARONE HCL200 MG PO (15:33)
[2017-04-30] MEDS ORDERED: VITAMIN D1000 UNIT PO (15:34)
[2017-04-30] MEDS ORDERED: SENSIPAR30 M1 PO (15:35)
== END 2017-01-23 17:04 | disposition home or self-care (01) | DRG 286 ==
LOC: CED 10:44 → CEDOF 11:38 → C5B 16:33
PROVIDERS: Emergency Medicine; Internal Medicine Cardiovascular Disease; Internal Medicine Nephrology; Nurse Practitioner
PROC: B246YZZ Ultrasonography of Right and Left Heart using Other Contrast (ICD-10-PCS; 2017-01-20)
PROC: 4A023N7 Measurement of Cardiac Sampling and Pressure, Left Heart, Percutaneous Approach (ICD-10-PCS; principal; 2017-01-22)
PROC: B211YZZ Fluoroscopy of Multiple Coronary Arteries using Other Contrast (ICD-10-PCS; 2017-01-22)
DX: I13.0 Hypertensive heart and chronic kidney disease with heart failure and stage 1 through stage 4 chronic kidney disease, or unspecified chronic kidney disease (principal); I50.23 Acute on chronic systolic (congestive) heart failure; I27.2 Other secondary pulmonary hypertension; I42.8 Other cardiomyopathies; I48.92 Unspecified atrial flutter; E83.52 Hypercalcemia; N18.3 Chronic kidney disease, stage 3 (moderate); I34.0 Nonrheumatic mitral (valve) insufficiency; I36.1 Nonrheumatic tricuspid (valve) insufficiency; E78.5 Hyperlipidemia, unspecified; F41.9 Anxiety disorder, unspecified; Z98.84 Bariatric surgery status; Z90.710 Acquired absence of both cervix and uterus; E66.9 Obesity, unspecified; G47.33 Obstructive sleep apnea (adult) (pediatric); I25.10 Atherosclerotic heart disease of native coronary artery without angina pectoris; Z95.5 Presence of coronary angioplasty implant and graft; Z88.5 Allergy status to narcotic agent; Z88.2 Allergy status to sulfonamides; Z79.82 Long term (current) use of aspirin; Z79.01 Long term (current) use of anticoagulants; Z82.49 Family history of ischemic heart disease and other diseases of the circulatory system; R80.9 Proteinuria, unspecified; M10.9 Gout, unspecified; F39 Unspecified mood [affective] disorder; F32.9 Major depressive disorder, single episode, unspecified
CPT/HCPCS: 36415; 71010; 78452; 80048; 80061; 80076; 81003; 82310; 82553; 82565; 82570; 83735; 83880; 83970; 84100; 84156; 84443; 84484; 84550; 85025; 85027; 85379; 85610; 85730; 87086; 93005; 93017; 93306; 94760; 96374; 99285; A9500; C1769; C1887; C1894; J1250; J1644; J1650; J1940; J2060; J2250; J2785; J3010

== ENCOUNTER → 2017-02-25 | Outpatient (CLI) | payer OTHER ==
[~2017-02-25] MED LIST changes: +AMIODARONE HCL200 MG PO; +DOXEPIN HCL50 M1 PO; +LOSARTAN POTASS50 MG PO; +SENSIPAR30 M1 PO; +VISTARIL PO; +VITAMIN D1000 UNIT PO
[2017-02-25 11:02] LABS: INR 7.1; PROTHROMBIN TIME (PATIENT) 79.6 SECONDS (9.6-11.5)
== END | disposition home or self-care (01) ==
LOC: CLAB 10:05
PROVIDERS: Internal Medicine Cardiovascular Disease
DX: I48.91 Unspecified atrial fibrillation (principal)
CPT/HCPCS: 36415; 85610

== ENCOUNTER → 2017-05-01 | Outpatient (CLI) | payer OTHER, SELFPAY ==
--- NOTE | ~2017-05-01 | EKG ---
PATIENT: TAPAN DINH UNIT #: [id number] Ventricular Rate: 56 BPM Atrial Rate: 227 BPM QRS Duration: 162 ms Q-T Interval: 502 ms QTC Calculation(Bezet): 484 ms Calculated R [place]: -56 degrees Calculated T [place]: 125 degrees Diagnosis Line: Atrial flutter with variable A-V block Diagnosis Line: Left axis deviation Diagnosis Line: Left bundle branch block Diagnosis Line: Abnormal ECG Diagnosis Line: When compared with ECG of 22-JAN-2017 05:30, Diagnosis Line: Questionable change in QRS axis Diagnosis Line: Nonspecific T wave abnormality now evident in Diagnosis Line: Lateral leads Diagnosis Line: QT has shortened Diagnosis Line: Confirmed by LUISITO BOX MD ([id number]) on Diagnosis Line: 05/03/2017 9:53:47 AM INTERPRETING : CORRINA
--- NOTE | ~2017-05-01 | OR ---
Unit #: [id number] #: [id number] Patient: TAPAN DINH [id number] [address] [address] [id number] MR#: [id number] NAME: TAPAN DINH ROOM: Date of Procedure: 05/01/2017 Admission Date: 05/01/2017 Surgeon: Alejandro Mcfadden M.D. : 1955 Attending Physician: Alejandro Mcfadden M.D. Referring Physician: Alejandro Mcfadden M.D. Primary Care Physician: Arlet Fabian M.D. OPERATIVE REPORT PROCEDURE PERFORMED Direct current shock cardioversion. INDICATION FOR PROCEDURE Atrial flutter fibrillation. DESCRIPTION OF PROCEDURE The patient was brought to the cardiac catheterization lab, telemetry was established, O2 saturation was 100%. The patient was given 2 mg of Versed and 100 mcg of fentanyl intravenously. Using 275 joules of biphasic current DC shock, cardioversion was performed. Rhythm converted to normal sinus, no arrhythmias were precipitated, blood pressure response was normal. IMPRESSION Successful direct current shock cardioversion, atrial fibrillation converted to normal sinus rhythm. Dictated by... Sarina Belle/spring TD: 05/01/2017 09:59 JOB #: [id number] OPERATIVE REPORT Page 1 of 1 X Alejandro Mcfadden MD X PROCEDURE OPERATIVE NOTE
--- NOTE | ~2017-05-01 | EKG ---
PATIENT: TAPAN DINH UNIT #: [id number] Ventricular Rate: 62 BPM Atrial Rate: 62 BPM P-R Interval: 270 ms QRS Duration: 170 ms Q-T Interval: 546 ms QTC Calculation(Bezet): 554 ms P [place]: 61 degrees Calculated R [place]: -106 degrees Calculated T [place]: 91 degrees Diagnosis Line: Sinus rhythm with 1st degree A-V block Diagnosis Line: Right superior axis deviation Diagnosis Line: Non-specific intra-ventricular conduction block Diagnosis Line: Abnormal ECG Diagnosis Line: When compared with ECG of 01-MAY-2017 08:33, Diagnosis Line: Sinus rhythm has replaced Atrial flutter Diagnosis Line: QT has lengthened Diagnosis Line: Confirmed by LUISITO BOX MD ([id number]) on Diagnosis Line: 05/03/2017 9:53:59 AM INTERPRETING MD: CORRINA
[2017-05-01 08:26] LABS: HEMATOCRIT 30.4 % (35.0-45.0); HEMOGLOBIN 9.3 gm/dL (12.0-16.0); MEAN CELL VOLUME 85.1 FL (83-96); MEAN CORPUSCULAR HGB CONC 30.5 g/dL (30-36); MEAN PLATELET VOLUME 7.8 FL (6.5-11.5); RED BLOOD COUNT 3.57 X10e (3.90-5.30); RED CELL DISTRIBUTION WIDTH 19.8 % (11.0-15.5); WHITE BLOOD COUNT 7.9 X10e3 (4.0-10.5)
[2017-05-01 08:45] LABS: PROTHROMBIN TIME (PATIENT) 50.6 SECONDS (10.0-11.7)
[2017-05-01 08:49] LABS: INR 4.6
[2017-05-01 09:04] LABS: CALCIUM SERUM 9.3 mg/dL (8.4-10.2); GLOM FILT RATE Estimated 25.7 mL/min (>60); POTASSIUM 3.6 mmol/L (3.5-5.1)
== END | disposition home or self-care (01) ==
LOC: CCVL 07:52
PROVIDERS: Internal Medicine Cardiovascular Disease
DX: I48.91 Unspecified atrial fibrillation (principal); Z79.01 Long term (current) use of anticoagulants; I25.10 Atherosclerotic heart disease of native coronary artery without angina pectoris; I42.9 Cardiomyopathy, unspecified; E11.9 Type 2 diabetes mellitus without complications; I10 Essential (primary) hypertension; Z79.899 Other long term (current) drug therapy; Z79.82 Long term (current) use of aspirin; Z88.5 Allergy status to narcotic agent; Z88.8 Allergy status to other drugs, medicaments and biological substances; Z88.2 Allergy status to sulfonamides; Z82.49 Family history of ischemic heart disease and other diseases of the circulatory system
CPT/HCPCS: 36415; 80048; 85027; 85610; 85730; 92960; 93005; J0461; J2250; J2310; J3010